=== PATIENT | female | born 1970 | race Caucasian/White ===

== ENCOUNTER 2016-04-24 17:38 | Inpatient (IN) | payer OTHER ==
[~2016-04-24] VITALS: Ht 152.4 cm; Wt 69.3 kg
[2016-04-24 17:38] VITALS: BP 145/73; PULSE 68; RESP 16; TEMP 98; O2SAT 96
[~2016-04-24 17:38] MED LIST: PANT20 PO; ZOFR4TAB3 PO
--- NOTE | 2016-04-24 18:01 | PD ---
HPI Chief Complaint: Psychiatric Symptoms Time Seen by Provider: 17:56 Travel History International Travel<30 days: No Contact w/Intl Traveler<30days: No Traveled to known affect area: No History of Present Illness HPI 45-year-old female with history of bipolar disorder presents to the emergency room under a Benítez act for evaluation of suicidal ideation. Patient called the police department reporting suicidal ideation because she is addicted to narcotic pain medication and cannot take it anymore. She would like to detox. States that she actually kill herself she would do it via overdose. Patient has been calling [facility] but they have been unable to accommodate her. She states she has gone through 100 pills in the past 2 weeks. Last had a dose this morning. Preferred medication is hydrocodone and oxycodone. She denies any other illicit drug use. Denies IV drug use. Reports occasional, once per month, alcohol use. Denies homicidal ideation, delusions, or hallucinations. She is supposed to be taking Wellbutrin, lithium, and Seroquel but has not had her medications because of insurance. History of hypertension and diabetes for which she is prescribed medication but does not take them because she does not have insurance. Denies any acute medical problems at this time. PFSH Past Medical History Arthritis: Yes (MILD IN LEGS) Asthma: No Blood Disorders: No Bipolar Disorder: Yes Depression: Yes Cardiovascular Problems: No Diabetes: Yes (TYPE 2) Diminished Hearing: No GERD: Yes Genitourinary: Yes Hypertension: Yes (NON COMPLIANT WITH MEDICATION) Insomnia: Yes Musculoskeletal: Yes Neurologic: No Psychiatric: Yes Respiratory: Yes ( GRANULOMA PER MOTHER) : 3 Para: 2 : 1 Ovarian Cysts: Yes (RT OVARY REMOVED, OOPHRECTOMY) Tubal Ligation: Yes Past Surgical History AICD: No Section: Yes (X 1 IN 1992) Genitourinary Surgery: Yes (, TUBAL LIGATION) Gynecologic Surgery: Yes Joint Replacement: No Neurologic Surgery: No Oral Surgery: No Other Surgery: Yes Social History Alcohol Use: Yes (ON OCCCASION ) Tobacco Use: Yes (1 PPD) Substance Use: No (PT STATES " A FRIEND GAVE ME A VALIUM YESTERDAY TO CALM DOWN ") Allergies-Medications (Allergen,Severity, Reaction): Coded Allergies: Aspirin (Verified Allergy, Severe, Rash, 04/24/16) RASH Reported Meds & Prescriptions Reported Meds & Active Scripts Active No Active Prescriptions or Reported Medications Review of Systems Except as stated in HPI: all other systems reviewed are Neg Physical Exam Narrative GENERAL: Well-nourished, well-developed female in no acute distress. Afebrile. Ambulatory. SKIN: Warm and dry. HEAD: Normocephalic. EYES: No scleral icterus. No injection or drainage. NECK: Supple, trachea midline. No JVD or lymphadenopathy. CARDIOVASCULAR: Regular rate and rhythm without murmurs, gallops, or rubs. RESPIRATORY: Breath sounds equal bilaterally. No accessory muscle use. PSYCHIATRIC: No delusional thought processes. No hallucinations. Crying. Data Data Last Documented VS Vital Signs Date Time Temp Pulse Resp B/P Pulse Ox O2 Delivery O2 Flow Rate FiO2 04/24/16 17:52 68 16 04/24/16 17:38 98.0 145/73 96 Orders Complete Blood Count With Diff (04/24/16 17:51) Basic Metabolic Panel (Bmp) (04/24/16 17:51) Drug Screen, Random Urine (04/24/16 17:51) Alcohol (Ethanol) (04/24/16 17:51) Salicylates (Aspirin) (04/24/16 17:51) Tylenol (Acetaminophen) (04/24/16 17:51) Psych Screen (04/24/16 17:51) Labs Laboratory Tests Test 04/24/16 18:15 White Blood Count 7.7 TH/MM3 Red Blood Count 4.56 MIL/MM3 Hemoglobin 14.0 GM/DL Hematocrit 41.7 % Mean Corpuscular Volume 91.5 FL Mean Corpuscular Hemoglobin 30.7 PG Mean Corpuscular Hemoglobin 33.6 % Concent Red Cell Distribution Width 14.9 % Platelet Count 243 TH/MM3 Mean Platelet Volume 9.0 FL Neutrophils (%) (Auto) 53.3 % Lymphocytes (%) (Auto) 32.0 % Monocytes (%) (Auto) 8.8 % Eosinophils (%) (Auto) 5.1 % Basophils (%) (Auto) 0.8 % Neutrophils # (Auto) 4.1 TH/MM3 Lymphocytes # (Auto) 2.5 TH/MM3 Monocytes # (Auto) 0.7 TH/MM3 Eosinophils # (Auto) 0.4 TH/MM3 Basophils # (Auto) 0.1 TH/MM3 CBC Comment DIFF FINAL Differential Comment Sodium Level 139 MEQ/L Potassium Level 3.8 MEQ/L Chloride Level 104 MEQ/L Carbon Dioxide Level 26.7 MEQ/L Anion Gap 8 MEQ/L Blood Urea Nitrogen 14 MG/DL Creatinine 0.69 MG/DL Estimat Glomerular Filtration 93 ML/MIN Rate Random Glucose 92 MG/DL Calcium Level 8.7 MG/DL Salicylates Level 3.2 MG/DL Urine Opiates Screen POS Acetaminophen Level LESS THAN 2.0 MCG/ML Urine Barbiturates Screen NEG Urine Amphetamines Screen NEG Urine Benzodiazepines Screen NEG Urine Cocaine Screen NEG Urine Cannabinoids Screen NEG Ethyl Alcohol Level LESS THAN 3 MG/DL MDM Medical Decision Making Medical Screen Exam Complete: Yes Emergency Medical Condition: Yes Medical Record Reviewed: Yes Differential Diagnosis Suicidal ideation versus bipolar disorder versus substance abuse disorder Narrative Course 45-year-old female presents to the emergency room under a Benítez act for evaluation of suicidal ideation. Patient called 911 and reported that she was suicidal because she is addicted to pain pills and cannot take it anymore. Plan is to overdose on pain medication. She last had a Lortab this morning. Denies any other illicit drug use. Denies any medical complaints at this time. CBC and BMP are unremarkable. Salicylate and acetaminophen levels are within normal limits. Alcohol is negative. Drug screen is positive for opioids, as expected. Patient is medically cleared for psychiatric evaluation and disposition of this time. Diagnosis Primary Impression: Medical clearance for psychiatric admission Scripts No Active Prescriptions or Reported Meds Condition: Machelle Lindsay Apr 24, 2016 18:01
[2016-04-24 18:36] LABS: AUTOMATED NEUTROPHIL # 4.1 TH/MM3 (1.8-7.7); BASOPHIL # 0.1 TH/MM3 (0-0.2); BASOPHIL % 0.8 % (0.0-2.0); EOSINOPHIL # 0.4 TH/MM3 (0-0.4); EOSINOPHIL % 5.1 % (0.0-4.0); HEMATOCRIT 41.7 % (35.0-46.0); HEMO FLAGS DIFF FINAL; LYMPHOCYTE # 2.5 TH/MM3 (1.0-4.8); MEAN CELL VOLUME 91.5 FL (80.0-100.0); MEAN CORPUSCULAR HEMOGLOBIN 30.7 PG (27.0-34.0); MEAN CORPUSCULAR HGB CONC 33.6 % (32.0-36.0); MONO % 8.8 % (0.0-8.0); NEUT % 53.3 % (16.0-70.0); PLATELET COUNT 243 TH/MM3 (150-450); RED BLOOD COUNT 4.56 MIL/MM3 (4.00-5.30); RED CELL DISTRIBUTION WIDTH 14.9 % (11.6-17.2); WHITE BLOOD COUNT 7.7 TH/MM3 (4.0-11.0)
[2016-04-24 19:25] LABS: ACETAMINOPHEN LESS THAN 2.0 MCG/ML (10.0-30.0); ANION GAP 8 MEQ/L (5-15); BICARBONATE 26.7 MEQ/L (21.0-32.0); BLOOD UREA NITROGEN 14 MG/DL (7-18); CHLORIDE 104 MEQ/L (98-107); GLOMERULAR FILTRATION RATE 93 ML/MIN (>89); POTASSIUM 3.8 MEQ/L (3.5-5.1); SODIUM (NA) 139 MEQ/L (136-145)
[2016-04-24 19:41] LABS: AMPHETAMINE, URINE NEG (NEG); BARBITURATES, URINE NEG (NEG); COCAINE, URINE NEG (NEG)
[2016-04-24 21:03] VITALS: BP 142/92; PULSE 77; RESP 18; O2SAT 96
[2016-04-24] MEDS ORDERED: LORazepam 0.5 MG TAB PO ONE (21:15)
[2016-04-24 22:43] VITALS: BP 107/55; PULSE 70; RESP 18; O2SAT 97
[2016-04-25 02:33] VITALS: BP 104/51; PULSE 64; RESP 17
[2016-04-25 06:24] VITALS: BP 117/64; PULSE 69; RESP 18; O2SAT 98
[2016-04-25 10:35] VITALS: BP 108/61; PULSE 62; RESP 16; O2SAT 96
[2016-04-25 14:13] VITALS: BP 138/73; PULSE 75; RESP 16; O2SAT 97
[2016-04-25] MEDS ORDERED: ACETAMINOPHEN 325 MG TAB PO PRN (16:00)
[2016-04-25] MEDS ORDERED: ALUMINUM/MAGNESIUM/SIMETH 30 ML CUP PO PRN (16:00)
[2016-04-25] MEDS ORDERED: MAGNESIUM HYDROXIDE SUSP 30 ML CUP PO PRN (16:00)
[2016-04-25] MEDS: hydrOXYzine HCL 50 MG TAB PO PRN ×2 (16:58→23:46)
[2016-04-25] MEDS: NICOTINE 21 MG/24 HR PATCH T-DERMAL SCH (17:00)
[2016-04-25 18:26] VITALS: BP 138/89; PULSE 83; RESP 20; TEMP 98.3; O2SAT 96
[2016-04-25] MEDS ORDERED: REMOVE OLD NICOTINE PATCH T-DERMAL SCH (21:00)
[2016-04-26 05:17] VITALS: BP 118/65; PULSE 63; RESP 16; TEMP 98; O2SAT 98
[2016-04-26 07:56] LABS: HDL CHOLESTEROL 45.6 MG/DL (40.0-60.0); LDL CHOLESTEROL 104 MG/DL (0-99)
[2016-04-26] MEDS: NICOTINE 21 MG/24 HR PATCH T-DERMAL SCH (09:00)
[2016-04-26] MEDS: hydrOXYzine HCL 50 MG TAB PO PRN (09:26)
--- NOTE | 2016-04-26 11:34 | HHI.HP ---
Provisional Diagnosis Admission Date Apr 25, 2016 at 15:04 [place] I. History of bipolar affective disorder depressed. History of substance abuse. [place] II. Passive-dependent trait [place] III. Please see the emergency room evaluation [place] IV. Moderate stress [place] V. GAF of 45 Certification of Person's Competence To Provide Express and Informed Consent I have personally examined Sarah Beth Dhillon , a person being served at [facility] on, Apr 26, 2016 11:27. Express and informed consent means consent voluntarily given in writing, by a competent person, after sufficient explanation and disclosure of the subject matter involved to enable the person to make a knowing and willful decision without any element of force, fraud, deceit, duress, or other form of constraint or coercion. This person is 18 years of age or older, is not now known to be incompetent to consent to treatment with a guardian advocate, and does not have a health care surrogate or proxy currently making medical treatment decisions. I have found this person to be one of the following: [x] Competent to provide express and informed consent, as defined above, for voluntary admission to this facility and is competent to provide express and informed consent for treatment. He/she has the consistent capacity to make well reasoned, willful, and knowing decisions concerning his or her medical or mental health treatment. The person fully and consistently understands the purpose of the admission for examination/placement and is fully capable of personally exercising all rights assured under [place] Incompetent to provide express and informed consent to voluntary admission, and this is incompetent to provide express and informed consent to treatment. The person must be transferred to involuntary status and a petition for a guardian advocate filed with the Circuit Court. [] Refusing to provide express and informed consent to voluntary admission but is competent to provide express and informed consent for treatment. The person must be discharged or transferred to involuntary status. Form shall be completed within 24 hours of a person's arrival at the receiving facility and filed in the clinical record of each person: 1. Admitted on a voluntary basis 2. Permitted to provide express and informed consent to his/her own treatment 3. Allowed to transfer from involuntary to voluntary status 4. Prior to permitting a person to consent to his or her own treatment after having been previously found incompetent to consent to treatment. 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 She also reported that she has bipolar affective disorder has not been taking her Wellbutrin lithium for the last several months and wants to go to outpatient and take the medication which was helping her. She claimed that she has been to [facility] and they somehow according to the patient refused her. Patient denies any auditory or visual hallucination at this time. Denied any paranoia. She has a court date tomorrow and wants to go home today as she is not suicidal all she wanted was her medication and a place to go for drug rehabilitation. She is going to last the production planner tomorrow and may be able to get into it. She claimed that she is safe. Review of Systems Except as stated in HPI: all other systems reviewed are Neg Psychiatric: COMPLAINS OF: Mood changes, Depression Past Psych History Psychological trauma history Patient denied any physical verbal or sexual abuse growing up Violence risk - others (6 mos) Patient denied Violence risk - self (6 mos) Patient denies any suicidal ideation intentions of plan she wants some help for the substance abuse and willing to follow-up as an outpatient Substance Abuse History Drugs/Alcohol past 12 months Admitted to drug abuse prescription drugs and painkillers Past Family Social History Coded Allergies: Aspirin (Verified Allergy, Severe, Rash, 04/24/16) RASH Discontinued Scripts Pantoprazole Sodium (Protonix)20 Mg Tab20 Mg PO DAILY #28 TAB Prov:Chi Anand MD 02/25/15 Ondansetron (Zofran ODT)4 Mg Tab4 Mg PO Q6HR PRN (NAUSEA) #10 TAB Prov:Chi Anand MD 02/25/15 Current Medications Medications (Trade) Dose Ordered Sig/Dev Route Start Time Stop Time Status Last Admin (Atarax) 50 mg Q6H PRN PO 04/25/16 16:00 04/26/16 09:26 (Tylenol) 650 mg Q4H PRN PO 04/25/16 16:00 (Milk Of Magnesia Liq) 30 ml DAILY PRN PO 04/25/16 16:00 (Mag-Al Plus Susp Liq) 30 ml Q6H PRN PO 04/25/16 16:00 (Habitrol 21 Mg Patch.24 Hr) 1 patch DAILY T-DERMAL 04/25/16 17:00 04/26/16 09:00 Miscellaneous Information 1 HS T-DERMAL 04/25/16 21:00 04/25/16 21:00 Family History Positive for alcoholism and a mother Social History Patient was born in [place]. She has 2 brothers one brother and one sister. She was not close to her parents her mother was an alcoholic and her childhood was described as somewhat traumatic but denied any physical verbal or sexual abuse growing up. She quit in ninth grade. When she was about 18 or 19 she started to abuse drugs and alcohol and got into some legal difficulty. She has 2 sons out of wedlock. She worked as a police patrol officer. She has been in and out of the hospital several times and also in and out of the rehabilitation several times Patient's Strengths (min. 2) Patient is cooperative and willing to sign voluntary willing to follow-up as an outpatient Physical Exam Patient denies any physical complaints she was medically cleared to be admitted here her vital signs are stable Vital Signs Vital Signs Date Time Temp Pulse Resp B/P Pulse Ox O2 Delivery O2 Flow Rate FiO2 04/26/16 05:17 98.0 63 16 118/65 98 Mental Status Examination This is a 45-year-old white female who looks about the same as her stated age was alert oriented 3 cooperative casually dressed her speech was clear spontaneous without any evidence of loose associations or flights of ideas or pressure speech her mood was described as feeling fine and wants to go home. She wanted to start on her medication willing to follow-up as an outpatient and wants to go home. She denied any suicidal ideation intentions or plan. She denied any auditory or visual hallucinations. Denied any paranoid delusion. She seems to be of average intelligence with fairly good memory her insight is fair and her judgment seems to be okay on hypothetical situation. Gait is normal her language is normal her fund of knowledge is average Assessment & Plan Problem List: (1) Bipolar affective disorder, depressed ICD Code: F31.30 (2) History of substance abuse ICD Code: Z87.898 Assessment & Plan Estimated LOS:2 days. This is a 45-year-old white female with a history of bipolar affective disorder. At the present time she denies any active and passive suicidal ideation intentions or plan. Denies any auditory or visual hallucinations. No behavior or management problem reported. She has a court date for tomorrow and she would like to be discharged and follow-up as an outpatient. In my opinion she does not meet the Benítez act criteria we will lift the Benítez act and discharge her to be followed up as an outpatient. This could be considered as an outpatient and discharge summary Request HC Surrog/Guard Advoc?: No Rishi Ibarra MD Apr 26, 2016 11:34
[2016-04-26] MEDS ORDERED: ARIP1TAB12 PO (11:40)
[2016-04-26] MEDS ORDERED: BUPR150CR PO (11:40)
[2016-04-26] MEDS ORDERED: LITH300T3 PO (11:40)
[2016-04-26] MEDS ORDERED: buPROPion HCL 150 MG SUSTAINED RELEASE TAB PO SCH (11:45)
[2016-04-26 13:27] LABS: HEMOGLOBIN A1b 0.8 %; HEMOGLOBIN Ao 85.5 %; HEMOGLOBIN F 0.8 %; HEMOGLOBIN P3 3.7 %
[2016-04-26] MEDS ORDERED: LITHIUM CARBONATE 300 MG TAB PO SCH (14:00)
[2016-04-26] MEDS ORDERED: ARIPiprazole 10 MG TAB PO SCH (21:00)
== END 2016-04-26 16:25 | disposition home or self-care (01) | DRG 885 ==
LOC: NEPA 17:38 → NEDA 04-25 15:04 → H260 04-25 16:50
PROVIDERS: ADMIT Psychiatry & Neurology Psychiatry; ATTEND Psychiatry & Neurology Psychiatry
DX: F31.9 Bipolar disorder, unspecified (principal); E11.9 Type 2 diabetes mellitus without complications; R45.851 Suicidal ideations; I10 Essential (primary) hypertension; H91.90 Unspecified hearing loss, unspecified ear; K21.9 Gastro-esophageal reflux disease without esophagitis; F17.200 Nicotine dependence, unspecified, uncomplicated; Z91.14 Patient's other noncompliance with medication regimen
CPT/HCPCS: 80048; 80061; 80307; 80320; 80329; 83036; 85025; 99284; G0480

== ENCOUNTER 2016-08-25 16:57 | Emergency (ER) | payer OTHER ==
[~2016-08-25] VITALS: Ht 157.5 cm; Wt 73.0 kg
[~2016-08-25 16:57] MED LIST changes: +ARIP1TAB12 PO; +BUPR150CR PO; +LITH300T3 PO; -PANT20 PO; -ZOFR4TAB3 PO
[2016-08-25 17:15] VITALS: BP 138/70; PULSE 96; RESP 17; TEMP 97.8; O2SAT 99
--- NOTE | 2016-08-25 17:23 | PD ---
HPI Chief Complaint: Benítez act Time Seen by Provider: 17:15 Travel History International Travel<30 days: No Contact w/Intl Traveler<30days: No Traveled to known affect area: No History of Present Illness HPI 45-year-old female presents under Benítez act initiated by the Police Department. The patient reports that over the past few days she has been feeling increasingly depressed and suicidal. She reports that she broke up with her boyfriend 2 days ago. Today she was running on the road and cutting her right wrist with a pulse take a knife and either her son or mother called the police. She reports that she took approximately 40 tablets of 103 25 Lortab at 9:30 AM 2 days ago. She reports that she vomited several times afterwards, she denies any toxic ingestion since then. She is attempting to kill herself. She reports history of bipolar disorder, she has been unable to take her lithium her Wellbutrin over the past 2 days because she left without her ex-boyfriend's house. Last tetanus vaccination unknown. No other complaints. PFSH Past Medical History Arthritis: Yes (MILD IN LEGS) Asthma: No Blood Disorders: No Bipolar Disorder: Yes Depression: Yes Cardiovascular Problems: No Diabetes: Yes (TYPE 2) Diminished Hearing: No GERD: Yes Genitourinary: Yes Hypertension: Yes (NON COMPLIANT WITH MEDICATION) Insomnia: Yes Musculoskeletal: Yes Neurologic: No Psychiatric: Yes Respiratory: Yes ( GRANULOMA PER MOTHER) : 3 Para: 2 : 1 Ovarian Cysts: Yes (RT OVARY REMOVED, OOPHRECTOMY) Tubal Ligation: Yes Past Surgical History AICD: No Section: Yes (X 1 IN 1992) Genitourinary Surgery: Yes (, TUBAL LIGATION) Gynecologic Surgery: Yes Joint Replacement: No Neurologic Surgery: No Oral Surgery: No Other Surgery: Yes Social History Alcohol Use: Yes (ON OCCCASION ) Tobacco Use: Yes (1 PPD) Substance Use: Yes Allergies-Medications (Allergen,Severity, Reaction): Coded Allergies: Aspirin (Verified Allergy, Severe, Rash, 04/24/16) RASH Reported Meds & Prescriptions Reported Meds & Active Scripts Active [place] Carbonate 300 Mg Tab 300 Mg PO Q8HR 7 Days Wellbutrin SR 12 HR (Bupropion HCl) 150 Mg Tab 150 Mg PO BID 10 Days Aripiprazole 10 Mg Tab 10 Mg PO HS 14 Days Reported Lortab (Hydrocodone-Acetaminophen) 10-325 Mg Tab 1 Tab PO Q6H PRN Review of Systems Except as stated in HPI: all other systems reviewed are Neg Physical Exam Narrative GENERAL: Well-developed well-nourished female in no acute distress SKIN: Warm and dry. Superficial linear abrasion to the right wrist. HEAD: Atraumatic. Normocephalic. EYES: Pupils equal and round. No scleral icterus. No injection or drainage. ENT: No nasal bleeding or discharge. Mucous membranes pink and moist. NECK: Trachea midline. No JVD. CARDIOVASCULAR: Regular rate and rhythm. No murmur appreciated. RESPIRATORY: No accessory muscle use. Clear to auscultation. Breath sounds equal bilaterally. GASTROINTESTINAL: Abdomen soft, non-tender, nondistended. Hepatic and splenic margins not palpable. MUSCULOSKELETAL: No obvious deformities. NEUROLOGICAL: Awake and alert. No obvious cranial nerve deficits. Motor grossly within normal limits. Normal speech. PSYCHIATRIC: Depressed, anxious, tearful Data Data Last Documented VS Vital Signs Date Time Temp Pulse Resp B/P Pulse Ox O2 Delivery O2 Flow Rate FiO2 08/26/16 05:43 65 18 117/64 98 Room Air 08/25/16 19:46 97.9 Orders Complete Blood Count With Diff (08/25/16 17:17) Comprehensive Metabolic Panel (08/25/16 17:17) Psych Screen (08/25/16 17:17) [place] (Li) (08/25/16 17:17) Drug Screen, Random Urine (08/25/16 17:17) Alcohol (Ethanol) (08/25/16 17:17) Salicylates (Aspirin) (08/25/16 17:17) Tylenol (Acetaminophen) (08/25/16 17:17) Ecg Monitoring (08/25/16 17:17) Tetanus/Diphtheria Tox Adult (Tetanus/Di (08/25/16 17:30) Lorazepam (Ativan) (08/25/16 19:45) Diet Diabetic (08/26/16 Breakfast) Labs Laboratory Tests Test 08/25/16 17:30 White Blood Count 9.1 TH/MM3 Red Blood Count 4.46 MIL/MM3 Hemoglobin 14.0 GM/DL Hematocrit 41.1 % Mean Corpuscular Volume 92.2 FL Mean Corpuscular Hemoglobin 31.3 PG Mean Corpuscular Hemoglobin 34.0 % Concent Red Cell Distribution Width 13.2 % Platelet Count 243 TH/MM3 Mean Platelet Volume 8.7 FL Neutrophils (%) (Auto) 68.9 % Lymphocytes (%) (Auto) 20.9 % Monocytes (%) (Auto) 7.8 % Eosinophils (%) (Auto) 1.5 % Basophils (%) (Auto) 0.9 % Neutrophils # (Auto) 6.3 TH/MM3 Lymphocytes # (Auto) 1.9 TH/MM3 Monocytes # (Auto) 0.7 TH/MM3 Eosinophils # (Auto) 0.1 TH/MM3 Basophils # (Auto) 0.1 TH/MM3 CBC Comment DIFF FINAL Differential Comment Sodium Level 141 MEQ/L Potassium Level 4.2 MEQ/L Chloride Level 108 MEQ/L Carbon Dioxide Level 28.7 MEQ/L Anion Gap 4 MEQ/L Blood Urea Nitrogen 9 MG/DL Creatinine 0.81 MG/DL Estimat Glomerular Filtration 77 ML/MIN Rate Random Glucose 87 MG/DL Calcium Level 9.0 MG/DL Total Bilirubin 0.2 MG/DL Aspartate Amino Transf 19 U/L (AST/SGOT) Alanine Aminotransferase 21 U/L (ALT/SGPT) Alkaline Phosphatase 42 U/L Total Protein 7.5 GM/DL Albumin 4.0 GM/DL Salicylates Level 3.2 MG/DL Urine Opiates Screen NEG Acetaminophen Level LESS THAN 2.0 MCG/ML Urine Barbiturates Screen NEG Urine Amphetamines Screen NEG Urine Benzodiazepines Screen POS [place] Level 0.1 MEQ/L Urine Cocaine Screen NEG Urine Cannabinoids Screen NEG Ethyl Alcohol Level LESS THAN 3 MG/DL MDM Medical Decision Making Medical Screen Exam Complete: Yes Emergency Medical Condition: Yes Medical Record Reviewed: Yes Differential Diagnosis Adjustment reaction, substance induced mood disorder, major depressive disorder , medication noncompliance, bipolar disorder Narrative Course 45-year-old female to history of bipolar disorder presents with increasing depression and suicidal thoughts over the past few days ever since she broke up with her boyfriend. She claims that she took 40 tablets of Lortab 2 days ago at 9:30 AM, none since then. She has a superficial abrasion to the right wrist which was self-inflicted just prior to arrival using a dull steak knife, it is very superficial and does not require repair. Tetanus status updated. Plan is for basic lab work, ECG monitoring, pulse oximetry. Mental health screening discussed with the patient. Psychiatric screen ordered. Diagnosis Primary Impression: Suicidal ideation Aidan Zuluaga Aug 25, 2016 17:23
[2016-08-25] MEDS ORDERED: TETANUS/DIPHTHERIA TOXOID ADULT 0.5 ML VIAL IM ONE (17:30)
[2016-08-25] MEDS ORDERED: HYDR-3535 PO (17:55)
[2016-08-25 18:27] LABS: AUTOMATED NEUTROPHIL # 6.3 TH/MM3 (1.8-7.7); BASOPHIL # 0.1 TH/MM3 (0-0.2); BASOPHIL % 0.9 % (0.0-2.0); EOSINOPHIL # 0.1 TH/MM3 (0-0.4); EOSINOPHIL % 1.5 % (0.0-4.0); HEMATOCRIT 41.1 % (35.0-46.0); HEMO FLAGS DIFF FINAL; LYMPH % 20.9 % (9.0-44.0); LYMPHOCYTE # 1.9 TH/MM3 (1.0-4.8); MEAN CELL VOLUME 92.2 FL (80.0-100.0); MEAN CORPUSCULAR HEMOGLOBIN 31.3 PG (27.0-34.0); MONO % 7.8 % (0.0-8.0); NEUT % 68.9 % (16.0-70.0); PLATELET COUNT 243 TH/MM3 (150-450); RED BLOOD COUNT 4.46 MIL/MM3 (4.00-5.30); RED CELL DISTRIBUTION WIDTH 13.2 % (11.6-17.2); WHITE BLOOD COUNT 9.1 TH/MM3 (4.0-11.0)
[2016-08-25 18:39] LABS: AMPHETAMINE, URINE NEG (NEG); BARBITURATES, URINE NEG (NEG); COCAINE, URINE NEG (NEG)
--- NOTE | 2016-08-25 18:40 | PD ---
Physical Exam Date Seen by Provider: Aug 25, 2016 Time Seen by Provider: 18:39 Narrative I was asked to resume care for this patient by Aidan Zuluaga PA-C. Please refer to his note for full details of history of present illness. Data Data Last Documented VS Vital Signs Date Time Temp Pulse Resp B/P Pulse Ox O2 Delivery O2 Flow Rate FiO2 08/25/16 17:15 76 17 08/25/16 17:15 97.8 138/70 99 Orders Complete Blood Count With Diff (08/25/16 17:17) Comprehensive Metabolic Panel (08/25/16 17:17) Psych Screen (08/25/16 17:17) [place] (Li) (08/25/16 17:17) Drug Screen, Random Urine (08/25/16 17:17) Alcohol (Ethanol) (08/25/16 17:17) Salicylates (Aspirin) (08/25/16 17:17) Tylenol (Acetaminophen) (08/25/16 17:17) Ecg Monitoring (08/25/16 17:17) Tetanus/Diphtheria Tox Adult (Tetanus/Di (08/25/16 17:30) Labs Laboratory Tests Test 08/25/16 17:30 White Blood Count 9.1 TH/MM3 Red Blood Count 4.46 MIL/MM3 Hemoglobin 14.0 GM/DL Hematocrit 41.1 % Mean Corpuscular Volume 92.2 FL Mean Corpuscular Hemoglobin 31.3 PG Mean Corpuscular Hemoglobin 34.0 % Concent Red Cell Distribution Width 13.2 % Platelet Count 243 TH/MM3 Mean Platelet Volume 8.7 FL Neutrophils (%) (Auto) 68.9 % Lymphocytes (%) (Auto) 20.9 % Monocytes (%) (Auto) 7.8 % Eosinophils (%) (Auto) 1.5 % Basophils (%) (Auto) 0.9 % Neutrophils # (Auto) 6.3 TH/MM3 Lymphocytes # (Auto) 1.9 TH/MM3 Monocytes # (Auto) 0.7 TH/MM3 Eosinophils # (Auto) 0.1 TH/MM3 Basophils # (Auto) 0.1 TH/MM3 CBC Comment DIFF FINAL Differential Comment Sodium Level 141 MEQ/L Potassium Level 4.2 MEQ/L Chloride Level 108 MEQ/L Carbon Dioxide Level 28.7 MEQ/L Anion Gap 4 MEQ/L Blood Urea Nitrogen 9 MG/DL Creatinine 0.81 MG/DL Estimat Glomerular Filtration 77 ML/MIN Rate Random Glucose 87 MG/DL Calcium Level 9.0 MG/DL Total Bilirubin 0.2 MG/DL Aspartate Amino Transf 19 U/L (AST/SGOT) Alanine Aminotransferase 21 U/L (ALT/SGPT) Alkaline Phosphatase 42 U/L Total Protein 7.5 GM/DL Albumin 4.0 GM/DL Salicylates Level 3.2 MG/DL Urine Opiates Screen NEG Acetaminophen Level LESS THAN 2.0 MCG/ML Urine Barbiturates Screen NEG Urine Amphetamines Screen NEG Urine Benzodiazepines Screen POS [place] Level 0.1 MEQ/L Urine Cocaine Screen NEG Urine Cannabinoids Screen NEG Ethyl Alcohol Level LESS THAN 3 MG/DL MDM Medical Record Reviewed: Yes Supervised Visit with XIOMARA: No Differential Diagnosis Suicide ideation, suicide attempt, depression Narrative Course I was asked to follow this patient and clear her medically for psych screen. Labs reviewed: Patient medically cleared for psych screen. Laboratory Tests Test 08/25/16 17:30 White Blood Count 9.1 TH/MM3 Red Blood Count 4.46 MIL/MM3 Hemoglobin 14.0 GM/DL Hematocrit 41.1 % Mean Corpuscular Volume 92.2 FL Mean Corpuscular Hemoglobin 31.3 PG Mean Corpuscular Hemoglobin 34.0 % Concent Red Cell Distribution Width 13.2 % Platelet Count 243 TH/MM3 Mean Platelet Volume 8.7 FL Neutrophils (%) (Auto) 68.9 % Lymphocytes (%) (Auto) 20.9 % Monocytes (%) (Auto) 7.8 % Eosinophils (%) (Auto) 1.5 % Basophils (%) (Auto) 0.9 % Neutrophils # (Auto) 6.3 TH/MM3 Lymphocytes # (Auto) 1.9 TH/MM3 Monocytes # (Auto) 0.7 TH/MM3 Eosinophils # (Auto) 0.1 TH/MM3 Basophils # (Auto) 0.1 TH/MM3 CBC Comment DIFF FINAL Differential Comment Sodium Level 141 MEQ/L Potassium Level 4.2 MEQ/L Chloride Level 108 MEQ/L Carbon Dioxide Level 28.7 MEQ/L Anion Gap 4 MEQ/L Blood Urea Nitrogen 9 MG/DL Creatinine 0.81 MG/DL Estimat Glomerular Filtration 77 ML/MIN Rate Random Glucose 87 MG/DL Calcium Level 9.0 MG/DL Total Bilirubin 0.2 MG/DL Aspartate Amino Transf 19 U/L (AST/SGOT) Alanine Aminotransferase 21 U/L (ALT/SGPT) Alkaline Phosphatase 42 U/L Total Protein 7.5 GM/DL Albumin 4.0 GM/DL Salicylates Level 3.2 MG/DL Urine Opiates Screen NEG Acetaminophen Level LESS THAN 2.0 MCG/ML Urine Barbiturates Screen NEG Urine Amphetamines Screen NEG Urine Benzodiazepines Screen POS [place] Level 0.1 MEQ/L Urine Cocaine Screen NEG Urine Cannabinoids Screen NEG Ethyl Alcohol Level LESS THAN 3 MG/DL Diagnosis Primary Impression: Suicidal ideation Condition: Stable Vanessa Wang Aug 25, 2016 18:40
[2016-08-25 18:50] LABS: ANION GAP 4 MEQ/L (5-15); AST (GOT) 19 U/L (15-37); BICARBONATE 28.7 MEQ/L (21.0-32.0); BLOOD UREA NITROGEN 9 MG/DL (7-18); CHLORIDE 108 MEQ/L (98-107); GLOMERULAR FILTRATION RATE 77 ML/MIN (>89); POTASSIUM 4.2 MEQ/L (3.5-5.1); SODIUM (NA) 141 MEQ/L (136-145)
[2016-08-25 18:53] LABS: ACETAMINOPHEN LESS THAN 2.0 MCG/ML (10.0-30.0); ALKALINE PHOSPHATASE 42 U/L (45-117); ALT (GPT) 21 U/L (10-53); TOTAL BILIRUBIN ADULT 0.2 MG/DL (0.2-1.0)
[2016-08-25] MEDS ORDERED: LORazepam 0.5 MG TAB PO ONE (19:45)
[2016-08-25 19:46] VITALS: BP 125/59; PULSE 62; RESP 20; TEMP 97.9; O2SAT 97
[2016-08-25 22:00] VITALS: BP 110/59; PULSE 66; RESP 18; O2SAT 95
[2016-08-26 02:42] VITALS: BP 108/56; PULSE 71; RESP 16; O2SAT 94
[2016-08-26 05:43] VITALS: BP 117/64; PULSE 65; RESP 18; O2SAT 98
[2016-08-26 09:59] VITALS: BP 114/58; PULSE 69; RESP 18; O2SAT 96
--- NOTE | 2016-08-26 13:46 | PD ---
History of Present Illness Chief Complaint: Psychiatric Symptoms Time Seen by Provider: 13:15 Travel History International Travel<30 Days: No Contact w/Intl Traveler<30days: No Known affected area: No Legal Status Legal Status: Benítez Act Benítez Act Signed By: Jj Knox Benítez Act Comment: 2016 @ 1609 History of Present Illness: History of Present Illness HPI 45-year-old female with history of bipolar disorder as well as substance use disorder who presents under Benítez act initiated by the [employer] Department. The patient reports that over the past few days she has been feeling increasingly depressed and suicidal after the breakup with her boyfriend 2 days ago . Today she took a knife and superficially cut her wrist. She reports that she took approximately 40 tablets of 103 25 Lortab at 9:30 AM 2 days ago. She reports that she vomited several times afterwards, she denies any toxic ingestion since then. She has not t aken her psychiatric medic in the past 22 days as she left them at her boyfriend's house. Her current [place] level is 0.1. Patient denies any substance use and her toxicology is currently negative. EMR is reviewed. She was last hospitalized in [facility] on Apr 2016 after she wanted to seek substance abuse treatment and was feeling hopeless. Patient was monitored in [facility] and she presented no suicidality. She slept well. this morning she is calm and states " I just need to get back on my medication. I got some sleep and I feel better. I just scratched myself because I was arguing with my boyfriend. I dont' want to hurt myself' She denies any psychosis and there is no areli or hypomania. PFSH Past Medical History Arthritis: Yes (MILD IN LEGS) Asthma: No Blood Disorders: No Bipolar Disorder: Yes Anxiety: Yes Depression: Yes Cardiovascular Problems: No Diabetes: Yes (TYPE 2) Patient Takes Glucophage: No Diminished Hearing: No GERD: Yes Genitourinary: Yes Hypertension: Yes (NON COMPLIANT WITH MEDICATION) Insomnia: Yes Musculoskeletal: Yes Neurologic: No Psychiatric: Yes Respiratory: Yes ( GRANULOMA PER MOTHER) Tetanus Vaccination: > 5 Years Influenza Vaccination: Yes ?: Not LMP: 08/21/16 : 3 Para: 2 : 1 Ovarian Cysts: Yes (RT OVARY REMOVED, OPHRECTOMY) Tubal Ligation: Yes Past Surgical History AICD: No Section: Yes (X 1 IN 1992) Genitourinary Surgery: Yes (, TUBAL LIGATION) Gynecologic Surgery: Yes Joint Replacement: No Neurologic Surgery: No Oral Surgery: No Other Surgery: Yes Psychiatric History Psychiatric History Hx Psychiatric Treatment: HX OF BIPOLAR DISORDER, DEPRESSION AND ANXIETY. History of Inpatient Treatment: Yes (Last hosp at [facility] in 2016) Guns or firearms in home: No Social History Single female . Lives with her mother. Hx Alcohol Use: Yes (ON OCCCASION ) Hx Tobacco Use: Yes (1 PPD) Hx Substance Use: No Substance Use Type: Synth Opiates-Pain Pills Other Substances Used: PAST HX OF ETOH AND COCAINE ABUSE Hx of Substance Use Treatment: No Family Psychiatric History Negative Allergies-Medications (Allergen,Severity, Reaction): Coded Allergies: Aspirin (Verified Allergy, Severe, Rash, 04/24/16) RASH Reported Meds & Prescriptions Reported Meds & Active Scripts Active [place] Carbonate 300 Mg Tab 300 Mg PO Q8HR 7 Days Wellbutrin SR 12 HR (Bupropion HCl) 150 Mg Tab 150 Mg PO BID 10 Days Aripiprazole 10 Mg Tab 10 Mg PO HS 14 Days Reported Lortab (Hydrocodone-Acetaminophen) 10-325 Mg Tab 1 Tab PO Q6H PRN Review of Systems Except as stated in HPI: all other systems reviewed are Neg Exam Alert: Yes [place]: Person (ox4) Mood: Calm Affect: Appropriate Speech: Clear, Logical Eye Contact: Normal Memory Intact: Comment (no impairmetn) Hallucinations: Other (neagtive) Delusions: No Suicidal: Ideation (deneis any) Homicidal: Ideation (deneis any) Insight/Judgement Fair. Not impaired. [facility] Medical Decision Making Medical Record Reviewed: Yes Assessment/Plan 45 year old female with history of bipolar disorder. She stopped her psychiatric medication 2 days ago. She ended a relationship with her boyfriend and in context of an argument she scratched her wrist. At this time the patient is denying any suicidal or homicidal ideation, intent or plan. She is wanting a prescription to get back on her medication. Plans on following up with outpatient care. Orders Complete Blood Count With Diff (08/25/16 17:17) Comprehensive Metabolic Panel (08/25/16 17:17) Psych Screen (08/25/16 17:17) [place] (Li) (08/25/16 17:17) Drug Screen, Random Urine (08/25/16 17:17) Alcohol (Ethanol) (08/25/16 17:17) Salicylates (Aspirin) (08/25/16 17:17) Tylenol (Acetaminophen) (08/25/16 17:17) Ecg Monitoring (08/25/16 17:17) Tetanus/Diphtheria Tox Adult (Tetanus/Di (08/25/16 17:30) Lorazepam (Ativan) (08/25/16 19:45) Diet Diabetic (08/26/16 Breakfast) Diet Regular Basic (08/26/16 Lunch) Diet Regular Basic (08/26/16 Dinner) Results Vital Signs Date Time Temp Pulse Resp B/P Pulse Ox O2 Delivery O2 Flow Rate FiO2 08/26/16 09:59 69 18 114/58 96 Room Air 08/26/16 05:43 65 18 117/64 98 Room Air 08/26/16 02:42 71 16 108/56 94 Room Air 08/25/16 22:00 66 18 110/59 95 Room Air 08/25/16 19:46 97.9 62 20 125/59 97 Room Air 08/25/16 17:15 76 17 08/25/16 17:15 97.8 96 17 138/70 99 Laboratory Tests Test 08/25/16 17:30 White Blood Count 9.1 Red Blood Count 4.46 Hemoglobin 14.0 Hematocrit 41.1 Mean Corpuscular Volume 92.2 Mean Corpuscular Hemoglobin 31.3 Mean Corpuscular Hemoglobin 34.0 Concent Red Cell Distribution Width 13.2 Platelet Count 243 Mean Platelet Volume 8.7 Neutrophils (%) (Auto) 68.9 Lymphocytes (%) (Auto) 20.9 Monocytes (%) (Auto) 7.8 Eosinophils (%) (Auto) 1.5 Basophils (%) (Auto) 0.9 Neutrophils # (Auto) 6.3 Lymphocytes # (Auto) 1.9 Monocytes # (Auto) 0.7 Eosinophils # (Auto) 0.1 Basophils # (Auto) 0.1 CBC Comment DIFF FINAL Differential Comment Sodium Level 141 Potassium Level 4.2 Chloride Level 108 Carbon Dioxide Level 28.7 Anion Gap 4 Blood Urea Nitrogen 9 Creatinine 0.81 Estimat Glomerular Filtration 77 Rate Random Glucose 87 Calcium Level 9.0 Total Bilirubin 0.2 Aspartate Amino Transf 19 (AST/SGOT) Alanine Aminotransferase 21 (ALT/SGPT) Alkaline Phosphatase 42 Total Protein 7.5 Albumin 4.0 Salicylates Level 3.2 Urine Opiates Screen NEG Acetaminophen Level LESS THAN 2.0 Urine Barbiturates Screen NEG Urine Amphetamines Screen NEG Urine Benzodiazepines Screen POS [place] Level 0.1 Urine Cocaine Screen NEG Urine Cannabinoids Screen NEG Ethyl Alcohol Level LESS THAN 3 Diagnosis Primary Impression: Bipolar affective disorder, depressed Ruled Out: Suicidal ideation Psychiatrically Cleared: Yes Departure Forms: Tests/Procedures Patient Instructions: General Instructions, Stress (ED) Additional Instructions: FOLLOW UP WITH YOUR CURRENT TREATMENT PROVIDERS Med/ Other Pt Specific Info: Prescription(s) given Prescriptions Aripiprazole (Abilify)10 Mg Tab10 Mg PO DAILY #15 TAB Ref 0 Prov:Gila Sylvestera Winn [employer] 08/26/16 [place] Carbonate 300 Mg [id number] Mg PO QID 14 Days Ref 0 Prov:SylvesterGila howella Winn [employer] 08/26/16 Bupropion HCl ER 12 HR (Wellbutrin SR 12 HR)150 Mg [id number] Mg PO Q12HR 14 Days Ref 0 Prov:Gila Sylvestera Winn [employer] 08/26/16 Disposition: 01 DISCHARGE HOME Condition: Stable Problem Qualifiers Primary Impression: Bipolar affective disorder, depressed Qualified Code: F31.31 - Bipolar affective disorder, currently depressed, mild SylvesterGila howella [employer]ATOR Aug 26, 2016 13:46
[2016-08-26] MEDS ORDERED: BUPR150CR PO (13:49)
[2016-08-26] MEDS ORDERED: LITH300C2 PO (13:52)
[2016-08-26] MEDS ORDERED: ARIP1TAB5 PO (13:53)
== END 2016-08-26 14:01 | disposition home or self-care (01) ==
LOC: NEDAMB 16:57 → NEPJ 08-26 14:01
DX: R45.851 Suicidal ideations (principal); F31.9 Bipolar disorder, unspecified; Z23 Encounter for immunization; I10 Essential (primary) hypertension; F17.210 Nicotine dependence, cigarettes, uncomplicated
CPT/HCPCS: 80053; 80178; 80307; 85025; 90471; 90714